=== PATIENT | male | born 1935 | race Caucasian/White ===

== ENCOUNTER → 2017-01-30 | Outpatient (CLI) | payer MEDICARE, OTHER ==
[2017-01-30 11:46] LABS: BUN/CREATININE RATIO 23 (0-10)
== END ==
LOC: US 01-27 12:30 → LAB 10:11 → US 10:45
PROVIDERS: Internal Medicine Nephrology
DX: N18.3 Chronic kidney disease, stage 3 (moderate) (principal); N25.81 Secondary hyperparathyroidism of renal origin
CPT/HCPCS: 36415; 80053; 82043; 82570; 83970; 84100

== ENCOUNTER → 2021-10-05 | Outpatient (CLI) | payer MEDICARE, OTHER | LOC: EXRD 10-01 13:00 | DX: M79.671 Pain in right foot (principal) | CPT/HCPCS: 93922; 93925 ==

== ENCOUNTER 2021-10-19 16:47 | Inpatient (IN) | payer MEDICARE, OTHER ==
[~2021-10-19] VITALS: Ht 160 cm; Wt 56.3 kg
[2021-10-19 18:55] LABS: HEMOGLOBIN 17.1 gm/dl (14.0-17.5); RED BLOOD COUNT 5.75 M/UL (4.20-5.50); WHITE BLOOD COUNT 7.2 K/UL (4.5-11.0)
[2021-10-20 06:03] LABS: HEMOGLOBIN 15.3 gm/dl (14.0-17.5); WHITE BLOOD COUNT 5.8 K/UL (4.5-11.0)
[2021-10-20 06:13] LABS: RED BLOOD COUNT 5.15 M/UL (4.20-5.50)
[2021-10-20] MEDS ORDERED: PRAVASTATIN SOD10 MG PO (09:57)
[2021-10-20] MEDS ORDERED: KETOCONAZOLE120 ML TP (09:57)
[2021-10-20] MEDS ORDERED: EUTHYROX112 MCG PO (09:58)
[2021-10-20] MEDS ORDERED: FINASTERIDE5 MG PO (09:58)
[2021-10-20] MEDS ORDERED: ELIQUIS2.5 MG PO (09:59)
[2021-10-20] MEDS ORDERED: LISINOPRIL5 MG PO (10:00)
[2021-10-22 11:14] LABS: CREATININE, URINE 52.3 mg/dL (Not Estab.)
[2021-10-22] MEDS ORDERED: LOPRESSOR 50 MG50 MG PO (11:45)
[2021-10-23] MEDS ORDERED: LOPRESSOR 25 MG25 MG PO (11:31)
== END 2021-10-23 13:33 | disposition home or self-care (01) | DRG 308 ==
LOC: PROG CARE 16:47
PROVIDERS: Internal Medicine Cardiovascular Disease; Physician Assistant; ADMIT Internal Medicine
PROC: B24BZZZ Ultrasonography of Heart with Aorta (ICD-10-PCS; principal; 2021-10-20)
DX: I48.0 Paroxysmal atrial fibrillation (principal); I50.43 Acute on chronic combined systolic (congestive) and diastolic (congestive) heart failure; N17.9 Acute kidney failure, unspecified; N18.4 Chronic kidney disease, stage 4 (severe); I13.0 Hypertensive heart and chronic kidney disease with heart failure and stage 1 through stage 4 chronic kidney disease, or unspecified chronic kidney disease; Z20.822 Contact with and (suspected) exposure to COVID-19; I08.3 Combined rheumatic disorders of mitral, aortic and tricuspid valves; M71.20 Synovial cyst of popliteal space [Baker], unspecified knee; I25.10 Atherosclerotic heart disease of native coronary artery without angina pectoris; I42.8 Other cardiomyopathies; E87.5 Hyperkalemia; N40.0 Benign prostatic hyperplasia without lower urinary tract symptoms; E03.9 Hypothyroidism, unspecified; E78.5 Hyperlipidemia, unspecified; Z88.6 Allergy status to analgesic agent; Z98.890 Other specified postprocedural states; Z91.14 Patient's other noncompliance with medication regimen; Z88.8 Allergy status to other drugs, medicaments and biological substances; Z90.49 Acquired absence of other specified parts of digestive tract; Z79.01 Long term (current) use of anticoagulants
CPT/HCPCS: ECHO; 36415; 71045; 80048; 80053; 81001; 82043; 82550; 82553; 82570; 83735; 83880; 84439; 84443; 84484; 85025; 85610; 93005; 93306; J1160; J1940; U0002

== ENCOUNTER → 2022-03-30 | Outpatient (CLI) | payer MEDICARE, OTHER ==
[~2022-03-30] MED LIST: ELIQUIS2.5 MG PO; EUTHYROX112 MCG PO; FINASTERIDE5 MG PO; KETOCONAZOLE120 ML TP; LISINOPRIL5 MG PO; LOPRESSOR 25 MG25 MG PO; LOPRESSOR 50 MG50 MG PO; PRAVASTATIN SOD10 MG PO
== END ==
LOC: HEART 5 13:10
DX: I48.91 Unspecified atrial fibrillation (principal)